=== PATIENT | male | born 1975 | race Caucasian/White ===

== ENCOUNTER 2025-05-25 09:09 | Inpatient (IN) | payer SELFPAY ==
[2025-05-25] VITALS (9 sets, daily range): BP systolic 91–198; BP diastolic 62–123; PULSE 90–140; RESP 16–18; TEMP 36.4–36.5; O2SAT 94–100; BMI 17.1
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
--- NOTE | 2025-05-25 09:34 | CT_ITS ---
WS: [id number] CT ABDOMEN PELVIS TECHNIQUE: Contrast-enhanced CT of the abdomen and pelvis with coronal and sagittal reformatted images. CLINICAL INFORMATION: abd pain COMPARISON: None. DLP: 406.[address] scans at [facility] use at least one of these dose optimization techniques: automated exposure control; mA and/or kV adjustment per patient size (includes targeted exams where dose is matched to clinical indication); or iterative reconstruction. FINDINGS: Inflammatory changes and edema with surrounding fluid about the pancreas compatible with acute pancreatitis. No drainable fluid collections or pseudocyst. Portal vein and splenic vein are patent. Hepatomegaly with fatty liver. Small esophageal hiatal hernia. Gastric rugal thickening with distal esophageal thickening compatible with esophagitis and gastritis. Associated duodenal thickening compatible with duodenitis. Celiac and SMA are patent. Proximal renal arteries are patent. Normal caliber abdominal aorta. Aortic calcification. Adrenal glands are normal. No hydronephrosis. Sigmoid diverticulosis. Normal appendix. Normal caliber abdominal aorta. No aneurysm. Submucosal fat stratification in the RIGHT colon is nonspecific but has been associated with inflammatory bowel disease. CT/CT abdomen pelvis w con* [id number] IMPRESSION: 1. Findings compatible with acute pancreatitis described above. 2. Evidence of esophagitis with gastritis and duodenitis. 3. Fatty liver with hepatomegaly. 4. Small esophageal hiatal hernia. 5. Portal vein and splenic vein are patent. Notified John Amaro MD at 05/25/2025 10:11 AM.
--- NOTE | 2025-05-25 09:37 | ED_ITS ---
HPI - Abdominal Pain 2 General: Chief Complaint: Abdominal Pain Stated Complaint: n/v/d Time Seen by Provider: 05/25/25 09:20 Source: patient Mode of arrival: ambulatory Limitations: no limitations History of Present Illness: 50-year-old male states he been having n ausea vomiting along with epigastric abdominal pains been going on for 3 days. States pains been sharp in nature and severe he does have a history of drinking alcohol he states occasional no history of pancreatitis no abdominal surgery in the past. He denies any worse improving factors denies any fevers or diarrhea Associated Symptoms: Reports nausea and vomiting; Denies chills, diarrhea, dysuria and fever(s) Related Data Home Medications ?Medication ?Instructions ?Recorded ?Confirmed bismuth subsalicylate 262 mg/15 mL 524 mg PO Q1H PRN S tomach Upset 05/25/25 05/25/25 oral suspension (Pepto-Bismol) ibuprofen 200 mg tablet (Advil) 800 mg PO Q6H PRN Pain 05/25/25 05/25/25 lisinopril 10 mg tablet 10 mg PO DAILY 05/25/2505/10 Allergies Allergy/AdvReac Type Severity Reaction Status Date / Time No Known Allergies Allergy Verified 05/25/25 09:25 Review of Systems 2 Const: Denies: fever(s), chills, body aches or change in appetite ENMT: Denies: throat pain or dental pain Card: Denies: chest pain Resp: Denies: dyspnea GI: Reports: abdominal pain, nausea and vomiting; Denies: diarrhea : Denies: dysuria Musc: Denies: neck pain or back pain Skin/Breast: Denies: rash Neuro: Denies: headache(s) Physical Exam 2 Const: COMMON NORMALS: no acute distress, patient oriented x3 and healthy appearing HENMT: COMMON NORMALS: normocephalic and atraumatic HEAD & SCALP: n ormocephalic and atraumatic Eye: COMMON NORMALS: conjunctivae normal CONJUNCTIVA: Yes conjunctivae normal Neck/C-Spine: COMMON NORMALS: full ROM and supple Chest: COMMONS NORMALS: normal inspection of the chest Resp: COMMON NORMALS: normal respiratory effort, No retractions, No use of accessory muscles and clear to auscultation bilaterally AUSCULTATION: clear to auscultation bilaterally Cardio: COMMON NORMALS: regular rate, regular rhythm and No murmurs present (Cardio) RATE: regular rate RHYTHM: regular rhythm GI: COMMON NORMALS: Normal to inspection, nondistended, normoactive bowel sounds present, Soft to palpation and no masses PALPATION: Yes Soft to palpation OTHER: epigastric tenderness Extremity: COMMON NORMALS: normal to inspection and full ROM Neuro: COMMON NORMALS: patient oriented x3, moves all extremities and no focal motor deficits Psych: COMMON NORMALS: mental status grossly normal, Normal thought process present and cooperative THOUGHT PROCESS: Normal thought process present Skin: COMMON NORMALS: no rashes or lesions noted and no wounds GENERAL SKIN EXAM: no rashes or lesions noted Course 2 Vital Signs: Vital signs: Vital Signs Temperature 97.5 F L 05/25/25 09:17 Pulse Rate 90 05/25/25 10:06 Respiratory Rate 16 05/25/25 10:06 Blood Pressure 198/123 05/25/25 10:06 Pulse Oximetry 100 05/25/25 10:06 Oxygen Delivery Me thod Room Air 05/25/25 09:17 MDM - Abdominal Pain Medical Decision Making Patient presents here with abdominal pain he is found to have pancreatitis he also has hypokalemia along with hypomagnesia we will replace his mag and potassium spoke to hospitalist will admit at this time Medical Records I reviewed the patient's medical records. Lab Data I reviewed the patient's lab results. 05/25/25 09:35 05/25/25 09:35 Labs/Radiology: Radiology Impressions Abdomen/Pelvis CT 05/25/25 09:34 IMPRESSION: 1. Findings compatible with acute pancreatitis described above. 2. Evidence of esophagitis with gastritis and duodenitis. 3. Fatty liver with hepatomegaly. 4. Small esophageal hiatal hernia. 5. Portal vein and splenic vein are patent. Notified John Amaro MD at 05/25/2025 10:11 AM. Laboratory Results WBC 9.52 10^3/uL (3.29-11.43) 05/25/25 09:35 RBC 4.06 10^6/uL (3.85-5.65) 05/25/25 09:35 Hgb 9.90 g/dL (11.27-16.99) L 05/25/25 09:35 Hct 32.1 % (37-53) L 05/25/25 09:35 MCV 79.1 fl (82-101) L 05/25/25 09:35 MCH 24.4 pg (27-33) L 05/25/25 09:35 MCHC 30.8 g/dL (30-55) 05/25/25 09:35 RDW 29.0 % (12.1-15.1) H 05/25/25 09:35 Plt Count 183 10^3/cmm (157-399) 05/25/25 09:35 MPV 10.3 fL (7.4-10.4) 05/25/25 09:35 Neut % (Auto) 80.5 % 05/25/25 09:35 Lymph % (Auto) 11.9 % 05/25/25 09:35 Pender % (Auto) 5.1 % 05/25/25 09:35 Eos % (Auto) 1.5 % 05/25/25 09:35 Baso % (Auto) 0.5 % 05/25/25 09:35 Neut # (Auto) 7.66 10^3/uL (1.8-7.7) 05/25/25 09:35 Lymph # (Auto) 1.1 10^3/uL (0.8-4.8) 05/25/25 09:35 Pender # (Auto) 0.5 10^3/uL (0.2-0.9) 05/25/25 09:35 Eos # (Auto) 0.1 10^3/uL (0.0-0.8) 05/25/25 09:35 Baso # (Auto) 0.1 10^3/uL (0.0-0.1) 05/25/25 09:35 Nucleated RBC % (auto) 0.5 % 05/25/25 09:35 Nucleated RBCs # 0.1 /100WBC 05/25/25 09:35 Sodium 131 mmol/L (136-145) L 05/25/25 09:35 Potassium 2.1 mmol/L (3.5-5.1) L* 05/25/25 09:35 Chloride 86 mmol/L (98-107) L 05/25/25 09:35 Carbon Dioxide 24 mmol/L (22-29) 05/25/25 09:35 Anion Gap 23.1 (5-19) H 05/25/25 09:35 BUN 5 mg/dL (6-20) L 05/25/25 09:35 Creatinine 0.9 mg/dL (0.7-1.2) 05/25/25 09:35 GFR Calculation 89.0 mL/min (90-130) L 05/25/25 09:35 Glucose 114 mg/dL (65-115) 05/25/25 09:35 Calculated Osmolality 270 mOsm/kg (285-295) L 05/25/25 09:35 Calcium 8.1 mg/dL (8.5-10.5) L 05/25/25 09:35 Magnesium 0.9 mg/dL (1.7-2.3) L 05/25/25 09:35 Total Bilirubin 2.4 mg/dL (0.15-1.2) H 05/25/25 09:35 AST 54 U/L (0-40) H 05/25/25 09:35 ALT 14 U/L (0-41) 05/25/25 09:35 Alkaline Phosphatase 107 U/L (40-130) 05/25/25 09:35 Total Protein 7.3 g/dL (6.6-8.7) 05/25/25 09:35 Albumin 3.8 g/dL (3.5-5.2) 05/25/25 09:35 Globulin 3.5 g/dL (1.3-4.6) 05/25/25 09:35 Lipase 1557 U/L (13-60) H 05/25/25 09:35 All radiology interpretation(s) finalized by discharge EKG Data EKG 1: I personally reviewed and interpreted this EKG as follows: EKG interpretation date: 05/25/25 EKG interpretation time: 10:06 Interpretation: nsr hr [address] or t wave abnormalities qrs 87 qtc 348 Discharge Plan Discharge Patient Disposition: Admitted As Inpatient Admit Provider: Matthew Celis Clinical Impression: Pancreatitis, Hypokalemia Condition: Stable Coding Level of Care Code ED Sales Representative Trainee for Chg Madeline
[2025-05-25] MEDS: ondansetron 2 mg/ML SDV 2 mL 4 MG IVP ×2 (09:38→19:29)
[2025-05-25] MEDS: morphine 4 mg/mL SDV 1 mL IVP (09:40)
[2025-05-25 09:45] LABS: Hematocrit 32.1 % (37-53); Hemoglobin 9.90 g/dL (11.27-16.99); Mean Corpuscular HGB Conc 30.8 g/dL (30-55); Mean Corpuscular Hemoglobin 24.4 pg (27-33); Mean Corpuscular Volume 79.1 fl (82-101); Nucleated Red Blood Cells % 0.5 %; Platelet Count 183 10^3/cmm (157-399); Red Blood Count 4.06 10^6/uL (3.85-5.65); White Blood Count 9.52 10^3/uL (3.29-11.43)
[2025-05-25] MEDS: iohexol 350 mg/mL 500 mL Btl (per mL) IV (09:47)
[2025-05-25 09:56] LABS: Alanine Aminotransferase 14 U/L (0-41); Albumin Level 3.8 g/dL (3.5-5.2); Alkaline Phosphatase 107 U/L (40-130); Anion Gap 23.1 (5-19); Aspartate Amino Transferase 54 U/L (0-40); Blood Urea Nitrogen 5 mg/dL (6-20); Calcium 8.1 mg/dL (8.5-10.5); Carbon Dioxide 24 mmol/L (22-29); Chloride 86 mmol/L (98-107); Creatinine Clr Calc Pharmacy 80.9886; Globulin 3.5 g/dL (1.3-4.6); Glucose 114 mg/dL (65-115); Osmolality Calculated 270 mOsm/kg (285-295); Sodium 131 mmol/L (136-145); Total Protein 7.3 g/dL (6.6-8.7)
[2025-05-25 09:57] LABS: Potassium 2.1 mmol/L (3.5-5.1)
[2025-05-25 10:03] LABS: Lipase 1557 U/L (13-60)
--- NOTE | 2025-05-25 10:06 | ECG_ITS ---
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 Measurements Intervals Hertel Rate: 88 P: 57 MT: 230 QRS: 58 QRSD: 87 T: 52 QT: 303 QTc: 367 Interpretive Statements SINUS RHYTHM WITH FIRST DEGREE AV BLOCK POSSIBLE LEFT ATRIAL ENLARGEMENT [-0.1mV P-WAVE IN V1/V2] SEPTAL MYOCARDIAL INFARCTION , OF INDETERMINATE AGE [40+ ms Q WAVE IN V1/V2] No previous ECG available for comparison Electronically Signed On 05-25-2025 16:43:52 CDT by Klever Figueroa M.D. [email or web address] [id number]
--- NOTE | 2025-05-25 10:12 | US_ITS ---
WS: [id number] RIGHT UPPER QUADRANT ULTRASOUND HISTORY: abd pain COMPARISON: 05/25/2025 CT Liver: 15.0 cm in length. Normal size liver with coarse echotexture from hepatic steatosis. The entire liver is not well visualized. Portal Vein: Normal hepatopetal flow with monophasic waveform. Gallbladder: Gallbladder is slightly enlarged. Transverse diameter is less than 4 cm. There is no wall thickening. No stones within the gallbladder lumen. There is a small amount of sludge within the gallbladder. CBD: 0.4 cm Pancreas: Obscured. Right kidney: 10.8 cm in length. Normal size and echogenicity. No hydronephrosis or mass. Aorta and IVC: Unremarkable abdominal aorta and IVC. No ascites. US/US gall bladder 03100 IMPRESSION: 1. No cholelithiasis or gallbladder wall thickening. 2. Small amount of sludge in the gallbladder. 3. Hepatic steatosis. 4. Nonvisualization of the pancreas.
[2025-05-25] MEDS: HYDROmorphone 0.5 MG/0.5 ML INJ 1 MG IVP ×4 (10:13→21:00)
[2025-05-25 10:16] LABS: Magnesium 0.9 mg/dL (1.7-2.3)
[2025-05-25] MEDS: magnesium sulfate premix 2 GM/50 ML PIGGYBACK IV (10:30)
--- NOTE | 2025-05-25 11:25 | P.HP_ITS ---
Providers/Chief Complaint 2 Admitting Physician: Matthew Celis Chief Complaint: n/v/d History of Present Illness Zheng Hradin is a 50 year old male patient with a history of hypertension who presents with three days of worsening epigastric abdominal pain radiating toward the neck, associated with large-volume vomiting, brief diarrhea during the first two days, inability to tolerate oral intake, and frequent heartburn. The pain prompted an ED visit where markedly elevated blood pressure (198/123 mmHg), tachycardia (111 bpm), and afebrile temperature (97.5 ?F) were documented. Initial labs revealed lipase 1557 U/L, sodium 131 mEq/L, potassium 2.1 mEq/L, chloride 86 mEq/L, bicarbonate 24 mEq/L, Mg 0.9 mg/dL, total bilirubin 2.4 mg/dL, AST 54 U/L, hemoglobin 9.9 g/dL, and otherwise normal WBC and platelets. CT abdomen/pelvis showed findings consistent with acute pancreatitis along with esophagitis, gastritis, and duodenitis. Abdominal ultrasound is pending to evaluate for gallstones. The patient reports heavy whiskey (?1 fifth/day) and beer intake, daily NSAID (ibuprofen every 4 hours like Tic Tacs ) for occupational musculoskeletal aches, and smoking one pack per day. Home medications include lisinopril 10 mg daily, omeprazole daily, Pepto-Bismol, and as-needed ibuprofen (last taken yesterday). The patient denies hematemesis, melena, hematochezia, dysuria, rashes, or leg swelling at present, and reports no known prior episodes of pancreatitis. They have not had prior upper endoscopy and have no established primary care provider. Review of Systems 2 Const: Denies: fever(s), chills, body aches or malaise ENMT: Denies: throat pain Card: Denies: chest pain, edema, pre-syncope or dyspnea on exertion Resp: Denies: dyspnea, productive cough, change in phlegm color or hemoptysis GI: Reports: abdominal pain, nausea, vomiting and diarrhea (Transient, now resolved); Denies: constipation, hematochezia or melena : Denies: flank pain, difficulty urinating, urinary frequency or hematuria Musc: Denies: back pain, joint swelling or joint redness Skin/Breast: Denies: rash or new lesions Neuro: Denies: headache(s) or confusion Medications/Allergies Home Medications ?Medication ?Instructions ?Recorded ?Confirmed ?Last Taken ?Type bismuth subsalicylate 262 mg/15 mL 524 mg PO Q1H PRN S tomach Upset 05/25/25 05/25/25 05/25/25 06:00 History oral suspension (Pepto-Bismol) ibuprofen 200 mg tablet (Advil) 800 mg PO Q6H PRN Pain 05/25/25 05/25/25 05/24/25 22:00 History lisinopril 10 mg tablet 10 mg PO DAILY 05/25/2505/1005/24/25 18:00 History Allergies Allergy/AdvReac Type Severity Reaction Status Date / Time No Known Allergies Allergy Verified 05/25/25 09:25 PFSH Acute 2 PFSH: Medical History HTN (hypertension) Social History Smoking and tobacco/nicotine status: current every day tobacco/nicotine user cigarettes Packs smoked per day: 1 Alcohol intake: current Alcohol intake frequency: 3 or more drinks per day Vitals/I&O/Wt Last Vital Signs Temp 97.5 F L 05/25/25 09:17 Pulse 102 H 05/25/25 11:00 Resp 16 05/25/25 11:00 BP 153/103 05/25/25 11:00 Pulse Ox 95 05/25/25 11:00 O2 Del Method Room Air 05/25/25 09:17 05/24/25 05/25/25 05/25/25 22:59 06:59 14:59 Intake Total 1000 / 1000 Balance 1000 / 1000 Weight last 48 hrs Weight 58.967 kg Physical Exam 2 Narrative: Accompanied by his and another family member Const: COMMON NORMALS: patient oriented x3 and alert GENERAL APPEARANCE: c ooperative ORIENTATION/CONSCIOUSNESS: Yes awake HENMT: COMMON NORMALS: oropharynx normal Neck/C-Spine: COMMON NORMALS: no JVD Resp: COMMON NORMALS: normal respiratory effort and clear to auscultation bilaterally AUSCULTATION: clear to auscultation bilaterally Cardio: COMMON NORMALS: no JVD, regular rhythm, S1 normal heart sound present, S2 normal heart sound present and No murmurs present (Cardio) RHYTHM: regular rhythm HEART SOUNDS: S1 normal heart sound present and S2 normal heart sound present GI: COMMON NORMALS: Normal to inspection, nondistended, normoactive bowel sounds present and Soft to palpation PALPATION: Yes Soft to palpation and Yes Tenderness to palpation present (GI) Details: other (Epigastrium) OTHER: Tovar negative Extremity: COMMON NORMALS: no joint enlargement and no pedal edema Neuro: COMMON NORMALS: patient oriented x3 and moves all extremities S ENSORIUM/ORIENTATION: Yes alert Skin: COMMON NORMALS: no rashes or lesions noted GENERAL SKIN EXAM: no rashes or lesions noted Data 05/25/25 09:35 05/25/25 09:35 A&P Assessment and plan 1. Pancreatitis: Acute pancreatitis : CT abdomen and lipase 1557 confirm acute pancreatitis. Likely multifactorial with heavy alcohol use as primary risk; gallstone disease to be ruled out (ultrasound pending). Differential also includes hypertriglyceridemia (labs ordered). No prior episodes documented. No evidence yet of complications such as necrosis or organ failure. Reviewed vitals CBC CMP lipase abdominal CT, ED provider note, discussed with ED provider. - Admit for inpatient management. - NPO with bowel rest; permit ice chips/sips. - Aggressive IV fluids (normal saline bolus given; continue maintenance). - IV pain control (morphine did not work, hydromorphone as needed for severe pain, hydrocodone/acetaminophen for moderate as needed, Tylenol as needed). - IV anti-emetic (ondansetron). -I V fluid, monitor for risk of fluid overload - Re-check lipase and chemistry panel tomorrow. - Abdominal ultrasound to evaluate for gallstones. - Order fasting triglyceride level. - Monitor vital signs and clinical status; extend hospitalization if unable to tolerate PO or if clinical deterioration. - Educate patient on strict alcohol cessation and NSAID avoidance to reduce recurrence risk. 2. Gastritis: Gastritis/Esophagitis/Duodenitis : CT showed gastric, esophageal, and duodenal inflammation likely related to chronic NSAID (ibuprofen) use and possibly reflux/vomiting. Patient reports frequent heartburn. - Protonix (pantoprazole) 40 mg IV twice daily while inpatient, transition to oral PPI on discharge. 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 - Follow up for outpatient EGD arrangements through primary care to evaluate mucosa, obtain biopsies (including H. pylori testing), and rule out malignancy given smoking history. - Continue home omeprazole until EGD completed. - Diet: advance from clear liquids as tolerated once pain and vomiting improve. 3. Esophagitis: As above 4. Electrolyte abnormality: Electrolyte abnormalities (hypokalemia, hypomagnesemia, hyponatremia) : Labs show K 2.1 mEq/L, Mg 0.9 mg/dL, Na 131 mEq/L likely from vomiting and fluid shifts in pancreatitis. - IV potassium and magnesium replacement initiated in ED; continue repletion per lab results. - Recheck BMP and Magnesium to monitor electrolytes and renal function. - Correct hypovolemia with IV fluids to assist sodium normalization. 5. Alcohol use disorder: Heavy whiskey and beer intake with history of withdrawal. Major risk factor for pancreatitis and hypertension. - Strict alcohol cessation counseling. - Initiate alcohol withdrawal monitoring protocol (CIWA). - Start thiamine, folic acid, and multivitamin supplementation. - Offer supportive resources for alcohol cessation, requesting CM consultation. 6. Smoking addiction: Smokes ~1 pack/day; increases risk of GI malignancy and cardiovascular disease. Discussed smoking cessation, including risks, including of risk of pancreatitis, as well as risk of cardiovascular disease, VT, stroke, lung disease, as well as malignancy not only lung but also GI, urinary tract and other. He is not ready to quit at this time. 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 - Order nicotine patches and lozenges as needed during stay. 7. Anemia: Hemoglobin 9.9 g/dL; etiology unclear (possible chronic disease, occult GI blood loss). No overt bleeding reported. - Trend CBC during hospitalization. - Consider outpatient evaluation (EGD/colonoscopy) if anemia persists after acute illness resolves. Plan: Hypertension : Known hypertension; ED BP 198/123 likely exacerbated by pain, alcohol excess, NSAID use, and anxiety. Home lisinopril 10 mg daily. - Continue lisinopril 10 mg daily when oral intake resumes. - Frequent BP monitoring during hospitalization. - Fertilizer Applicator to monitor BP at home post-discharge; patient has home cuff. - Address contributing factors: discontinue heavy alcohol, avoid NSAIDs, manage pain appropriately -discussed multimodal approach. - Arrange outpatient primary care follow-up for chronic BP management. Needs PCP: Requested CM consultation PDMP PDMP Reviewed: Not Reviewed Attestations 2 Medical Necessity Statement*: Admission of over 2 midnights anticipated for assessment management of acute pancreatitis, gastritis, esophagitis, monitor for alcohol withdrawal with alcohol use, heavy NSAID use. and High MDM includes amount and/or complexity of data reviewed/ordered [ previous or external records, resulted lab(s)/test(s), ordered lab(s)/test(s) and other healthcare professional discussion] and described risk of complication, morbidity or mortality of management as documented Diagnoses Pancreatitis K85.90 Gastritis K29.70 Esophagitis K20.90 Electrolyte abnormality E87.8 Alcohol use disorder F10.90 Smoking addiction F17.200 Anemia D64.9
[2025-05-25] MEDS: pantoprazole 40 mg SDV IVP (11:43)
[2025-05-25] MEDS: thiamine 100 mg/mL 2mL SDV IM (11:46)
[2025-05-25 12:06] LABS: Cholesterol 140 mg/dL (0-200); HDL Cholesterol 59 mg/dL (60-100); Triglycerides 98 mg/dL (0-150)
--- NOTE | 2025-05-25 13:10 | PC.NURSE ---
attempted report x2 times; once @1300, on hold for 7 min, attempted again @1307; states nurse would take report if you would just hold on ; on hold for 6 min.
--- NOTE | 2025-05-25 13:14 | PC.NURSE ---
report called to Wilfredo on Med-Surg; no further questions at end of report.
--- NOTE | 2025-05-25 13:14 | PC.NURSE ---
This nurse attempted to call RANJANA Riggs in Er back to obtain report at 1304. Nurse was in a patients room and needed to call me back. When RANJANA Riggs called back, this nurse was in a patients room administering meds. This nurse asked Nina to place call on hold and I would be there shortly to answer. This nurse called ER back at 1312 as they were no longer on the line.
[2025-05-26] VITALS: BP 124/81; PULSE 114; RESP 16; TEMP 36.4; O2SAT 92
[2025-05-26] MEDS: pantoprazole 40 mg SDV IVP ×2 (00:58→11:20)
[2025-05-26] MEDS: HYDROmorphone 0.5 MG/0.5 ML INJ 1 MG IVP ×2 (01:02→07:05)
[2025-05-26 04:00] VITALS: BP 130/86; PULSE 121; RESP 17; TEMP 36.4; O2SAT 90
[2025-05-26 05:06] LABS: Hematocrit 28.1 % (37-53); Hemoglobin 8.50 g/dL (11.27-16.99); Mean Corpuscular HGB Conc 30.2 g/dL (30-55); Mean Corpuscular Hemoglobin 24.8 pg (27-33); Mean Corpuscular Volume 81.9 fl (82-101); Nucleated Red Blood Cells % 0.1 %; Platelet Count 157 10^3/cmm (157-399); Red Blood Count 3.43 10^6/uL (3.85-5.65); White Blood Count 18.24 10^3/uL (3.29-11.43)
[2025-05-26 05:24] LABS: Alanine Aminotransferase 10 U/L (0-41); Albumin Level 3.3 g/dL (3.5-5.2); Alkaline Phosphatase 87 U/L (40-130); Anion Gap 15.5 (5-19); Aspartate Amino Transferase 38 U/L (0-40); Blood Urea Nitrogen 6 mg/dL (6-20); Calcium 7.2 mg/dL (8.5-10.5); Carbon Dioxide 27 mmol/L (22-29); Chloride 94 mmol/L (98-107); Creatinine Clr Calc Pharmacy 104.1282; Globulin 2.9 g/dL (1.3-4.6); Glucose 101 mg/dL (65-115); Magnesium 1.4 mg/dL (1.7-2.3); Osmolality Calculated 276 mOsm/kg (285-295); Sodium 134 mmol/L (136-145); Total Protein 6.2 g/dL (6.6-8.7)
[2025-05-26 05:30] LABS: Potassium 2.5 mmol/L (3.5-5.1)
[2025-05-26 05:36] LABS: Lipase 1385 U/L (13-60)
--- NOTE | 2025-05-26 05:47 | PC.NURSE ---
critical K lab pyscian notified, ordered 40 KCL
[2025-05-26] MEDS: lidocaine 1% 5 ML in potassium chloride premix 100 ML 52.5 ML IV ×2 (06:56→09:01)
[2025-05-26] MEDS: ondansetron 2 mg/ML SDV 2 mL 4 MG IVP (07:08)
[2025-05-26 07:43] VITALS: BP 123/76; PULSE 126; RESP 17; O2SAT 94
[2025-05-26] MEDS: multivitamin therapeutic Tablet 1 TAB PO (08:10)
--- NOTE | 2025-05-26 10:49 | P.DS_ITS ---
Discharge Providers Date of Admission: 05/25/25 10:20 Date of Discharge: May 26, 2025 Attending Provider at Admission: Matthew Celis Attending Provider at Discharge: Matthew Celis Diagnoses at Discharge Discharge Diagnosis 1. Pancreatitis: 2. Gastritis: 3. Esophagitis: 4. Electrolyte abnormality: 5. Alcohol use disorder: 6. Smoking addiction: 7. Anemia: Reason for Visit Reason for Visit: n/v/d Brief History: Zheng Hardin is a 50 year old male patient with a history of hypertension who presents with three days of worsening epigastric abdominal pain radiating toward the neck, associated with large-volume vomiting, brief diarrhea during the first two days, inability to tolerate oral intake, and frequent heartburn. The pain prompted an ED visit where markedly elevated blood pressure (198/123 mmHg), tachycardia (111 bpm), and afebrile temperature (97.5 ?F) were documented. Initial labs revealed lipase 1557 U/L, sodium 131 mEq/L, potassium 2.1 mEq/L, chloride 86 mEq/L, bicarbonate 24 mEq/L, Mg 0.9 mg/dL, total bilirubin 2.4 mg/dL, AST 54 U/L, hemoglobin 9.9 g/dL, and otherwise normal WBC and platelets. CT abdomen/pelvis showed findings consistent with acute pancreatitis along with esophagitis, gastritis, and duodenitis. Abdominal ultrasound is pending to evaluate for gallstones. The patient reports heavy whiskey (?1 fifth/day) and beer intake, daily NSAID (ibuprofen every 4 hours like Tic Tacs ) for occupational musculoskeletal aches, and smoking one pack per day. Home medications include lisinopril 10 mg daily, omeprazole daily, Pepto-Bismol, and as-needed ibuprofen (last taken yesterday). The patient denies hematemesis, melena, hematochezia, dysuria, rashes, or leg swelling at present, and reports no known prior episodes of pancreatitis. They have not had prior upper endoscopy and have no established primary care provider. Hospital Course Hospital Course He was admitted and treated for acute pancreatitis due to EtOH. Discussed extensively with him and with family avoiding any EtOH due to risk of recurrent pancreatitis chronic pancreatitis, as well as gastritis and esophagitis, and other risks. Discussed also smoking cessation which may contribute to recurrence of pancreatitis as well as risk of malignancy. Discussed with him to seek evaluation with endoscopy upon follow-up with primary provider. Local referrals were offered for the patient, however, he is not from around here and prefer to resume care in his area with his primary provider. Gallbladder ultrasound was obtained which showed small amount of sludge, otherwise no signs of cholecystitis. No sign of obstructive pancreatitis. Tovar sign was negati ve. He was kept on bowel rest, received IV hydration, analgesia and antiemetics. Received electrolyte replacement of potassium and magnesium due to low levels which are showing improvement. He tolerated trial of oral diet and advancement to GI soft diet. Lipase was followed up and decreasing. He was treated with IV PPI due to gastritis and esophagitis. Suspected slow loss with the above, with MCV 81.9. He is instructed to stop NSAIDs which she states has been taking like TicTac's . He had no signs of bleeding during the hospitalization without hematemesis melena or hematochezia. PPI is escalated to twice daily at discharge. As discussed with him we will need to follow-up for endoscopic evaluation. He reports feeling much better today. Resources were provided for him for alcohol cessation. As he is otherwise feeling much better and continuing to improve he is discharged home with continued follow-up. He is instructed to also continue monitoring his blood pressures due to hypotension on presentation, although this so far has improved with resumption of lisinopril and cardiac diet. He is instructed to follow-up on other incidental findings including anemia, fatty liver disease with hepatomegaly, and gallbladder sludge, as well as electrolyte deficiency. She is provided with electrolyte supplements. Nicotine replacement was provided in the hospital and offered at discharge, however, he declines. Physical Exam Const: COMMON NORMALS: patient oriented x3 and alert GENERAL APPEARANCE: cooperative ORIENTATION/CONSCIOUSNESS: Yes awake HENMT: COMMON NORMALS: oropharynx normal Neck/C-Spine: COMMON NORMALS: no JVD Resp: COMMON NORMALS: normal respiratory effort and clear to auscultation bilaterally AUSCULTATION: clear to auscultation bilaterally Cardio: COMMON NORMALS: no JVD, regular rhythm, S1 normal heart sound present, S2 normal heart sound present and No murmurs present (Cardio) RHYTHM: regular rhythm HEART SOUNDS: S1 normal heart sound present and S2 normal heart sound present GI: COMMON NORMALS: Normal to inspection, nondistended, normoactive bowel sounds present, Soft to palpation and non-tender PALPATION: Yes Soft to palpation Extremity: COMMON NORMALS: no joint enlargement and no pedal edema Neuro: COMMON NORMALS: patient oriented x3 and moves all extremities SENSORIUM/ORIENTATION: Yes alert Skin: COMMON NORMALS: no rashes or lesions noted GENERAL SKIN EXAM: no rashes or lesions noted Discharge Data Studies Completed and Pending Completed Studies During Hospitalization Category Date Time Status CT abdomen pelvis w con* [id number] Stat Cat Scan 05/25/25 09:34 Completed US gall bladder [id number] Stat Ultrasound 05/25/25 10:12 Completed Radiology Impressions Abdomen/Pelvis CT 05/25/25 09:34 IMPRESSION: 1. Findings compatible with acute pancreatitis described above. 2. Evidence of esophagitis with gastritis and duodenitis. 3. Fatty liver with hepatomegaly. 4. Small esophageal hiatal hernia. 5. Portal vein and splenic vein are patent. Notified John Amaro MD at 05/25/2025 10:11 AM. Gallbladder Ultrasound 05/25/25 10:12 IMPRESSION: 1. No cholelithiasis or gallbladder wall thickening. 2. Small amount of sludge in the gallbladder. 3. Hepatic steatosis. 4. Nonvisualization of the pancreas. Laboratory Results WBC 18.24 10^3/uL (3.29-11.43) H 05/26/25 04:40 RBC 3.43 10^6/uL (3.85-5.65) L 05/26/25 04:40 Hgb 8.50 g/dL (11.27-16.99) L 05/26/25 04:40 Hct 28.1 % (37-53) L 05/26/25 04:40 MCV 81.9 fl (82-101) L 05/26/25 04:40 MCH 24.8 pg (27-33) L 05/26/25 04:40 MCHC 30.2 g/dL (30-55) 05/26/25 04:40 RDW 29.1 % (12.1-15.1) H 05/26/25 04:40 Plt Count 157 10^3/cmm (157-399) 05/26/25 04:40 MPV 11.1 fL (7.4-10.4) H 05/26/25 04:40 Neut % (Auto) 88.7 % 05/26/25 04:40 Lymph % (Auto) 4.1 % 05/26/25 04:40 [place] % (Auto) 5.6 % 05/26/25 04:40 Eos % (Auto) 0.4 % 05/26/25 04:40 Baso % (Auto) 0.2 % 05/26/25 04:40 Neut # (Auto) 16.18 10^3/uL (1.8-7.7) H 05/26/25 04:40 Lymph # (Auto) 0.8 10^3/uL (0.8-4.8) 05/26/25 04:40 [place] # (Auto) 1.0 10^3/uL (0.2-0.9) H 05/26/25 04:40 Eos # (Auto) 0.1 10^3/uL (0.0-0.8) 05/26/25 04:40 Baso # (Auto) 0.0 10^3/uL (0.0-0.1) 05/26/25 04:40 Nucleated RBC % (auto) 0.1 % 05/26/25 04:40 Nucleated RBCs # 0.0 /100WBC 05/26/25 04:40 Sodium 134 mmol/L (136-145) L 05/26/25 04:40 Potassium 2.5 mmol/L (3.5-5.1) L* 05/26/25 04:40 Chloride 94 mmol/L (98-107) L 05/26/25 04:40 Carbon Dioxide 27 mmol/L (22-29) 05/26/25 04:40 Anion Gap 15.5 (5-19) 05/26/25 04:40 BUN 6 mg/dL (6-20) 05/26/25 04:40 Creatinine 0.7 mg/dL (0.7-1.2) 05/26/25 04:40 GFR Calculation 118.9 mL/min (90-130) 05/26/25 04:40 Glucose 101 mg/dL (65-115) 05/26/25 04:40 Calculated Osmolality 276 mOsm/kg (285-295) L 05/26/25 04:40 Calcium 7.2 mg/dL (8.5-10.5) L 05/26/25 04:40 Magnesium 1.4 mg/dL (1.7-2.3) L 05/26/25 04:40 Total Bilirubin 1.3 mg/dL (0.15-1.2) H 05/26/25 04:40 AST 38 U/L (0-40) 05/26/25 04:40 ALT 10 U/L (0-41) 05/26/25 04:40 Alkaline Phosphatase 87 U/L (40-130) 05/26/25 04:40 Total Protein 6.2 g/dL (6.6-8.7) L 05/26/25 04:40 Albumin 3.3 g/dL (3.5-5.2) L 05/26/25 04:40 Globulin 2.9 g/dL (1.3-4.6) 05/26/25 04:40 Triglycerides 98 mg/dL (0-150) 05/25/25 09:35 Cholesterol 140 mg/dL (0-200) 05/25/25 09:35 LDL Cholesterol, Calc 61 mg/dL (50-129) 05/25/25 09:35 HDL Cholesterol 59 mg/dL (60-100) L 05/25/25 09:35 LDL/HDL Ratio 1.03 RATIO (0.00-3.22) 05/25/25 09:35 Cholesterol/HDL Ratio 2.37 mg/dL (1.0-5.00) 05/25/25 09:35 Lipase 1385 U/L (13-60) H 05/26/25 04:40 Vitals Last Vital Signs Temp 97.6 F 05/26/25 04:00 Pulse 126 H 05/26/25 07:43 Resp 17 05/26/25 07:43 BP 123/76 05/26/25 07:43 Pulse Ox 94 05/26/25 07:43 O2 Del Method Room Air 05/26/25 07:43 Discharge Plan Discharge Patient Disposition: Home Condition: Stable Prescriptions: New acetaminophen 325 mg Tablet 650 mg PO Q6H PRN (Reason: Mild/Mod Pain Or Temp >/= 101) Qty: 90 0RF hydrocodone-acetaminophen 5-325 mg Tablet 1 tab PO Q4H PRN (Reason: Moderate Pain) Qty: 12 0RF folic acid 1 mg Tablet 1 mg PO DAILY Qty: 90 0RF thiamine mononitrate (vit B1) [Vitamin B-1 (mononitrate)] 100 mg Tablet 100 mg PO DAILY Qty: 90 0RF multivitamin with folic acid [Thera] 400 mcg Tablet 1 tab PO DAILY Qty: 90 0RF magnesium L-threonate 48 mg magnesium (667 mg) capsule 48 mg PO DAILY Qty: 90 0RF potassium chloride [K-Tab] 20 mEq tablet extended release See Rx Instructions .ROUTE .COMPLEX Qty: 30 0RF Rx Instructions: 40 mEq for a week, then cont 20mEq until recheck omeprazole 40 mg capsule,delayed release(DR/EC) 40 mg PO BID Qty: 84 0RF Continued bismuth subsalicylate [Pepto-Bismol] 262 mg/15 mL Suspension 524 mg PO Q1H PRN (Reason: Stomach Upset) Rx Instructions: do not exceed 8 doses in a 24 hour period lisinopril 10 mg Tablet 10 mg PO DAILY Discontinued ibuprofen [Advil] 200 mg Tablet 800 mg PO Q6H PRN (Reason: Pain) Discharge Order = DC NOW: Discharge Order (Routine); Ordered 05/26/25 Ordered By: Matthew Celis Referrals: Crisis Stabilization [Other] Referral Note: 7 days/week 8am-6pm [facility] [Outside] Referral Note: ? Follow up as a walk in at [facility], walk in hours are Friday-Friday from 7:30AM-3:00PM, first come, first seen. Once you do this assessment you will be referred for appropriate services. Discharge Diet: As Directed and Low Cholesterol Patient Instructions: Potassium Chloride (By mouth) (K-Dur, K-Padmini, K-Tab, Dat Mur), Omeprazole (By mouth) (Prilosec, Prilosec OTC, Omeclamox-Wilson, First..., Thiamine (By mouth) ([facility] Vitamin B1, Nature's..., Folic Acid (By mouth), Multivitamins, Adult Formula (By mouth), Magnesium (By mouth), How to Stop Smoking (DC), Gastritis (DC), Pancreatitis (DC), Cigarette Smoking and Your Health (GEN), Abuse of Alcohol (DC), Esophagitis (DC), Opioid Safety, Patient Portal & [place] Instructions Activity Restrictions/Additional Instructions: Please follow-up with your primary doctor for reassessment after episode of acute pancreatitis. Please stop any alcohol consumption whatsoever. Continue attempts to quit smoking. Discontinue NSAIDs (ibuprofen) due to risk of increasing blood pressure as well as causing gastritis. Follow-up with your primary doctor for arrangements of endoscopic assessment of your stomach and esophagus due to noted inflammation on CT. Follow-up with your primary doctor for reassessment after gallbladder sludge. Maintain low-cholesterol diet as discussed. Follow-up with your primary doctor regarding incidental findings of enlarged liver with fatty liver infiltration. Similarly avoid any alcohol and maintain low-cholesterol diet to help avoid the liver becoming fibrosis or progressing to liver cirrhosis. Of electrolytes with noted low potassium magnesium which needed replacement, you are provided with supplementation to be continued after discharge. Have your primary doctor recheck your electrolyte levels. Monitor your blood pressures at home, continue to target long-term blood pressure is 120/80 to help reduce development of heart disease, congestive heart failure and other complications. Avoid any alcohol and NSAIDs (ibuprofen) which increased blood pressures. Seek medical attention in case of any worsening or new concerning symptoms. Discharge Attestations Time Spent in Discharge Care*: greater than 30 min Quality Metrics Clinical Quality Measures [ No reported AMI, CVA or VTE this stay] Coding Level of Care Code 16711 Total time (in minutes) for Discharge: 45 Diagnoses Pancreatitis K85.90 Gastritis K29.70 Esophagitis K20.90 Electrolyte abnormality E87.8 Alcohol use disorder F10.90 Smoking addiction F17.200 Anemia D64.9
[2025-05-26 11:19] VITALS: BP 120/82; PULSE 118; RESP 18; TEMP 36.8; O2SAT 90
[2025-05-26] MEDS: HYDROcodone-acetaminophen 5-325 mg Tablet 1 TAB PO (11:21)
== END 2025-05-26 15:57 | disposition home or self-care (01) | DRG 439 ==
LOC: ER 10:16 → ER IP 10:22 → MEDSURG 12:51
PROVIDERS: Admitting Provider Internal Medicine; Emergency Provider Emergency Medicine; Visit Provider Internal Medicine
DX: K85.20 Alcohol induced acute pancreatitis without necrosis or infection (principal); E87.1 Hypo-osmolality and hyponatremia; K29.80 Duodenitis without bleeding; K29.70 Gastritis, unspecified, without bleeding; K20.90 Esophagitis, unspecified without bleeding; F10.10 Alcohol abuse, uncomplicated; F17.210 Nicotine dependence, cigarettes, uncomplicated; D64.9 Anemia, unspecified; I10 Essential (primary) hypertension; R00.0 Tachycardia, unspecified; K76.0 Fatty (change of) liver, not elsewhere classified; Z79.891 Long term (current) use of opiate analgesic; E87.6 Hypokalemia; E83.42 Hypomagnesemia
CPT/HCPCS: 36415; 74177; 76705; 80053; 80061; 83690; 83735; 85025; 93005; 96365; 96372; 96375; 99285; J1171; J2270; J2405; J2470; J3411; J3475; J3480; J7030; J7120; J9999